=== PATIENT | male | born 1950 | race Caucasian/White ===

== ENCOUNTER 2017-03-27 09:58 | Emergency (ER) | payer MEDICARE ==
--- NOTE | ~2017-03-27 | ER ---
PATIENT'S NAME: LIS HERNÁNDEZ [facility] AGE: 67 Y [address] ROOM: [place] [address] LOCATION: [facility] ADMIT DATE: 03/27/2017 ER/Outpatient Report DISCHARGE DATE: 03/27/2017 FAMILY PHYSICIAN: Mario Esposito MD ATTENDING PHYSICIAN: Funmilayo Jang Time of Arrival: 0958 hours. Time of Evaluation/Seen: 1015 hours. IDENTIFICATION: A 67-year-old male. CHIEF COMPLAINT: Hearing loss. HISTORY OF PRESENT ILLNESS: The patient has had cold symptoms for a month that are improving after being treated with a Z-Juan Carlos which he finished 10 to 14 days ago. He continues to have cough, productive of some colored sputum, but has improved. Nasal congestion also is better. He does not have any plugged feeling in his ears, but this morning woke up with hearing loss to his right ear. Last night he had a headache. He did take some ibuprofen that is completely relieved today. He has no headache today. He has no numbness or tingling. No other problems or concerns. He has a daughter with him that states that her sister thought maybe over the last several months his speech has been a little different, the patient is not aware of that. PAST MEDICAL HISTORY: ALLERGIES: NO KNOWN DRUG ALLERGIES. CURRENT MEDICATIONS: 1. Lisinopril I believe mixed with hydrochlorothiazide. He does not know the dose. 2. Lexapro. 3. Belsomra for sleep. MEDICAL PROBLEMS: Hypertension and anxiety. SOCIAL HISTORY: The patient lives here in [place]. He is retired. Tobacco use, denies. Alcohol use, denies. Drug use, denies. PATIENT'S NAME: LIS HERNÁNDEZ [facility] AGE: 67 Y [address] ROOM: [place] [address] LOCATION: [facility] ADMIT DATE: 03/27/2017 ER/Outpatient Report DISCHARGE DATE: 03/27/2017 FAMILY PHYSICIAN: Mario Esposito MD ATTENDING PHYSICIAN: Funmilayo Jang REVIEW OF SYSTEMS: GENERAL: He has had no fever or chills. HEENT: The patient has no vision changes. Hearing loss noted acutely in the right ear. Normal hearing in the left ear. No neck pain or stiffness. He does have some nasal congestion. No drainage. RESPIRATORY: He has no chest pain. He has a cough productive of brown sputum. The patient does have some shortness of breath and his cough is improving. ABDOMEN: No abdominal pain, nausea, or vomiting. GENITOURINARY: No dysuria. He does have increased frequency of urination and increased thirst. NEUROLOGIC: No numbness, tingling, or weakness. SKIN: No skin rashes. HEME: No history of bleeding diathesis or blood clots. ENDOCRINE: The patient has no history of diabetes or thyroid abnormalities. PSYCHIATRIC: The patient has anxiety. PHYSICAL EXAMINATION: VITAL SIGNS: Weight 93.7 kg. Blood pressure 170/102, pulse 69, respiratory rate is 20, temperature 96.9, and saturations 96% on room air. GENERAL: A 67-year-old male in no acute distress. HEENT: Head; normocephalic and atraumatic. Eyes; pupils equal and reactive to light and accommodation. Extraocular movements intact. Nose; mucosa pink. No lesions or drainage. Mouth; no lesions. Pharynx, benign. Nose; mucosa erythematous, congested. No drainage. Ears; TMs translucent in both ears. Normal external auditory canals bilaterally. Tuning fork is not available, but with humming, sound radiates to his left ear. Hearing loss is in his right ear. NECK: Supple. No lymphadenopathy. No nuchal rigidity. No carotid bruits. HEART: Regular rate and rhythm. No murmur, rub, or gallop. LUNGS: Clear to auscultation. ABDOMEN: Bowel sounds present. Soft, nondistended, nontender. SKIN: [place], warm, and dry. No lesions or rashes noted. NEUROLOGIC: The patient is alert and oriented x4. Cranial nerves 2 through 12 grossly intact. Motor strength 5/5 throughout. Sensation is intact to light touch. LABORATORY DATA AND IMAGING STUDIES: Head CT, negative per Radiology. Sodium 131, potassium 4.5, chloride 98, CO2 of 25, BUN 34, and creatinine 1.5. Previous creatinine available for comparison. Blood sugar 378. Liver enzymes, normal. Cardiac enzymes, negative. CBC is normal. EKG, normal sinus rhythm at 69 beats per minute. No acute ST elevation or depression. Hemoglobin A1c of 11.98. IMPRESSION AND PLAN: PATIENT'S NAME: BETTYLIS [facility] AGE: 67 Y [address] ROOM: [place] [address] LOCATION: [facility] ADMIT DATE: 03/27/2017 ER/Outpatient Report DISCHARGE DATE: 03/27/2017 FAMILY PHYSICIAN: Mario Esposito MD ATTENDING PHYSICIAN: Funmilayo Jang 1. Sensorineural hearing loss. 2. Hypertension. 3. Diabetes, new onset. 4. Acute kidney injury. Elevated creatinine of 1.5. The patient's daughter has come out. Daughter has been not wondering how long this is going to take because he has somewhere he has to be. The patient is otherwise asymptomatic and would like to go and follow up as an outpatient. The patient will follow up with ENT on Wednesday. Follow up with Dr. Esposito on Wednesday. Diabetic diet information has been provided. The patient is aware of the new diagnosis of diabetes. He will not be placed on steroids for the hearing loss due to his blood sugar being elevated, and he will return as needed. FUNMILAYO JANG MD CAR/modl /[id number] d: 03/27/17 1720 t: 04/05/17 0757, OUTPATIENT REPORT
[2017-03-27 11:05] LABS: BASOPHIL # 0.1 K/uL (0.0-0.2); EOSINOPHIL # 0.2 K/uL (0.0-0.5); HEMATOCRIT 44.2 % (37.0-53.0); HEMOGLOBIN 15.4 g/dL (11.0-16.0); IMMATURE GRANULOCYTE # 0.1 K/uL (0.0-0.3); IMMATURE GRANULOCYTE % 1.2 %; LYMPHOCYTE % 40.2 %; MCHC 34.8 gm/dL (32.0-36.5); MCV 89.1 fl (83.0-98.0); MONOCYTE # 0.5 K/uL (0.0-1.0); MONOCYTE % 9.6 %; MPV 10.3 fl (9.4-12.4); NEUTROPHIL # (ANC) 2.2 K/uL (1.4-9.0); NRBC % 0 /100WBC (0-0.00); PLATELET COUNT 167 K/uL (150-450); RBC 4.96 M/uL (3.50-5.50); RDW-CV 12.8 % (11.9-14.6); WBC 4.9 K/uL (4.0-11.0)
[2017-03-27 11:27] LABS: ALBUMIN 3.7 gm/dL (3.5-5.0); ALK PHOS 53 IU/L (33-138); ALT 50 IU/L (12-78); BLOOD UREA NITROGEN 34 mg/dL (6-24); CALCIUM 8.5 mg/dL (8.5-10.5); CHLORIDE 98 mMol/L (96-110); CO2 25 mMol/L (22-32); CPK 94 IU/L (35-332); CREATININE 1.5 mg/dL (0.6-1.3); SODIUM 131 mMol/L (135-145); TOTAL BILIRUBIN 0.7 mg/dL (0.0-1.5); TOTAL PROTEIN 7.5 g/dL (6.0-8.4)
[2017-03-27 11:28] LABS: ANION GAP 12.5 (10.0-19.0); AST 27 IU/L (10-40)
[2017-03-27 11:29] LABS: POTASSIUM 4.5 mMol/L (3.7-5.1)
== END 2017-03-27 12:15 | disposition disaster alternative care site (69) ==
LOC: GMED 09:58
PROVIDERS: Family Medicine
DX: H90.5 Unspecified sensorineural hearing loss (principal); I10 Essential (primary) hypertension; E11.9 Type 2 diabetes mellitus without complications; N17.9 Acute kidney failure, unspecified; F41.9 Anxiety disorder, unspecified; Z79.899 Other long term (current) drug therapy